=== PATIENT | male | born 1965 | race Caucasian/White ===

== ENCOUNTER → 2016-09-20 13:36 | Outpatient (CLI) | payer BC ==
[2015-12-09 08:11] VITALS: BMI 32.3
[~2016-09-20 13:36] MED LIST: ALTACE10 MG PO; ASPIRIN325 MG PO; CRESTOR20 MG PO; CRESTOR40 MG PO; ISOSORBIDE MONO30 M1 PO; KLONOPIN1 MG PO; PLAVIX75 MG PO; PROTONIX40 MG PO; RANEXA500 MG PO
== END | disposition home or self-care (01) ==
LOC: D.US 13:36
DX: S80.12XA Contusion of left lower leg, initial encounter (principal); R60.0 Localized edema

== ENCOUNTER 2017-02-06 07:46 | Outpatient (CLI) | payer BC ==
[2015-12-09 08:11] VITALS: BMI 32.3
--- NOTE | ~2017-02-06 | HEMODYNAMI ---
PATIENT:EMMANUEL PIZANO MEDICAL RECORD: [id number] : 69 LOCATION:D.CAT ADMISSION DATE: 02/06/17 Generatedon:02/06/201711:37 Patient name: EMMANUEL PIZANO Patient #: [id number] SSN: : 1965 Date of study: 02/06/2017 Page: Of Hemodynamic Procedure Report Patient Data Patient Demographics Procedure consent was obtained First Name: EMMANUEL Gender: Male Last Name: JERICA : 1965 [facility] Initial: DESMOND Age: 51 year(s) Patient #: [id number] Race: Additional ID: [id number] Contact details Address: [address] [place] [address] lane State: [place] City: [place] Zip code: [address] Past Medical History History of disease Date Diagnosis Comments CAD Allergies: No known allergies Admission Admission Data Admission Date: 02/06/2017 Admission Time: 7:46 Admit Source: Other Height (in.): 69.69 BSA: 2.17 (m2) Height (cm.): 177 BMI: 31.85 (kg/m2) Weight (lbs.): 220 Weight (kg.): 99.79 Procedure Procedure Types Cath Procedure Diagnostic Procedure [facility] w/Coronaries PCI Procedure Coronary Stent Initial Miscellaneous Procedures Moderate Sedation up to 15 minutes Procedure Description Procedure Date Procedure Date: 02/06/2017 Procedure Start Time: 11:20 Procedure End Time: 11:35 Procedure Staff Name Function Will Bates MD Performing Physician Shannon Felix RT Scrub Samuel Hayes RN Nurse Gretchen Terrell RT Monitor Procedure Data Cath Procedure Fluoroscopy Diagnostic fluoroscopy Total fluoroscopy Time: 5 time: 5 min min Diagnostic fluoroscopy Total fluoroscopy dose: 838 dose: 838 mGy mGy Contrast Material Contrast Material Type Amount (ml) Isovue 300 95 Entry Location Entry Primary Successful Side Size Upsize Upsize Entry Closure Succes sful Closure Location (Fr) 1 (Fr) 2 (Fr) Remarks Device Remarks Femoral Right 5 Fr 6 Fr artery Short Estimated blood loss: 10 ml Diagnostic catheters Device Type Used For End Catheter Placement Cordis 5Fr Pigtail Procedure Catheter (MP) Cordis 5Fr JL 4.0 Procedure Catheter (MP) Cordis 5Fr 3DRC Catheter Procedure (MP) Procedure Complications No complications Procedure Medications Medication Administration Route Dosage Oxygen NC 2 l/min Heparin Flush Bag added to field 2 bags (1000units/500ml NS) 0.9% NaCl I.V. 100 ml/hr Fentanyl I.V. 50 mcg Versed I.V. 1 mg Fentanyl I.V. 50 mcg Versed I.V. 1 mg Heparin Bolus I.V. 4000 units Fentanyl I.V. 50 mcg Fentanyl I.V. 50 mcg Hemodynamics Rest BSA: 2.17 (m2) O2 Consumption: Estimated: 254.38 (ml/min) O2 Consumption indexed : Estimated:117.23 (ml/min/m) Heart Rate: 63 (bpm) Snapshots Pre Cath Intra NCS Post Cath Vital Signs Time Heart Resp SPO2 etCO2 NIBP (mmHg) Rhythm Pain Status Sedation Rate (ipm) (%) (mmHg) Level (bpm) 11:15:17 60 17 97 0 129/77(99) NSR 4 (11) , 10(A) Distressing 11:19:29 63 17 94 0 123/76(93) NSR 4 (11) , 10(A) Distressing 11:23:41 67 16 93 0 132/82(107) NSR 0 (11) , No 9(A) pain 11:27:57 73 18 96 0 137/79(108) NSR 0 (11) , No 9(A) pain 11:32:11 76 20 95 0 139/85(112) NSR 0 (11) , No 9(A) pain 11:34:53 79 18 95 0 128/91(121) NSR 0 (11) , No 9(A) pain Medications Time Medication Route Dose Verified Delivered Reason Notes Effectiveness by by 11:18:43 Oxygen NC 2 Will Baker Per physician l/min Jana Hayes RN 11:19:05 Heparin Flush added 2 Will Baker used for Bag to bags Jana Hayes pearl diver (1000units/500ml field NS) 11:19:14 0.9% NaCl I.V. 100 Will Baker Per physician ml/hr Jana Hayes RN 11:20:21 Fentanyl I.V. 50 Will Samuel for sedation mcg Jana Hayes RN 11:20:29 Versed I.V. 1 mg Will Samuel for sedation Jana Hayes RN 11:25:45 Fentanyl I.V. 50 Will Samuel for sedation mcg Jana Hayes RN 11:25:48 Versed I.V. 1 mg Will Baker for sedation Jana Hayes RN 11:26:00 Heparin Bolus I.V. 4000 Will Samuel for units Jana Hayes RN anticoagulation 11:29:02 Fentanyl I.V. 50 Will Raygozay for sedation mcg Jana Hayes RN 11:30:57 Fentanyl I.V. 50 Will Raygozay for sedation mcg Jana Hayes RN Procedure Log Time Note 10:51:15 Shannon Felix RT(R) sent for patient. Start room use. 11:10:21 Time tracking: Regular hours 11:10:25 Plan of Care:Hemodynamics will remain stable., Cardiac rhythm will remain stable., Comfort level will be maintained., Respiratory function will remain adequate., Patient/ family verbilizes understanding of procedure., Procedure tolerated without complication., Recovers from procedure without complications.. 11:10:29 Patient received from ED to CCL 2 Alert and oriented. Tansferred to table in Supine position. 11:10:30 Warm blankets applied, and frederick hugger turned on for patient comfort. 11:10:31 Correct patient and procedure confirmed by team. 11:10:33 Signed procedure consent form obtained from patient. 11:10:34 ECG and BP/O2 sat monitors applied to patient. 11:10:48 Vital chart was started 11:10:50 Baseline sample Acquired. 11:10:55 Rhythm: sinus rhythm 11:10:56 Full Disclosure recording started 11:11:03 H&P Date Dictated: 02/06/2017 Emergent; H&P N/A. 11:11:05 Pre-procedure instructions explained to patient. 11:11:30 Patient NPO since Midnight. 11:11:36 Patient allergic to No known allergies 11:11:40 Is the patient allergic to Iodine/contrast media? No. 11:11:42 Is patient on blood thinner?Yes 11:11:45 ACC The patient was administered the following blood thiners within the last 24 hours: ACCPlavix 11:11:47 Patient diabetic? No. 11:11:51 Snore? Yes 11:11:52 Sleep apnea? No 11:11:59 Dentures? No ? 11:12:03 Patient pain scale 4/10 ?. 11:12:09 IV patent on arrival in left forearm with 0.9% NaCl at [facility]. 11:12:14 Lab results completed and on chart. 11:12:17 Right groin area was prepped with chlora-prep and draped in sterile fashion 11:12:19 Alarms reviewed by R. N. 11:12:19 Sharps counted by scrub and verified by R.N. 11:12:20 Physician paged 11:12:21 Physician arrived 11:12:22 --------ALL STOP TIME OUT------ 11:12:23 Final Timeout: patient, procedure, and site verified with staff and physician. All members of the team are in agreement. 11:12:25 Right groin site verified by team. 11:12:29 Physical assessment completed. ASA score P 2 - A patient with mild systemic disease as per Will Bates MD. 11:12:32 Sedation plan: IV Moderate Sedation Versed, Fentanyl 11:13:13 Use device set Femoral Dx 11:13:14 Acist Syringe opened to sterile field. 11:13:15 Bag Decanter opened to sterile field. 11:13:15 Medline Cath Pack opened to sterile field. 11:13:16 Terumo 5Fr [place] Sheath opened to sterile field. 11:13:16 St Jacob 260cm J .035 wire opened to sterile field. 11:13:17 Acist Hand Control opened to sterile field. 11:13:18 Acist Manifold opened to sterile field. 11:13:18 Diagnostic Infinity 5Fr Multipack catheter opened to sterile field. 11:13:18 Tegaderm 4 x 4 opened to sterile field. 11:14:52 Patient Height : 69.69 inches 11:15:08 Patient Weight : 220 lbs 11:15:26 Admit Source: Other 11:18:43 Oxygen 2 l/min NC was administered by Samuel Hayes RN; Per physician; 11:19:05 Heparin Flush Bag (1000units/500ml NS) 2 bags added to field was administered by Samuel Hayes RN; used for procedure; 11:19:14 0.9% NaCl 100 ml/hr I.V. was administered by Samuel Hayes RN; Per physician; 11:19:51 Procedure started. 11:20:05 Local anesthetic to right femoral artery with Lidocaine 2% by Will Bates MD.INITIAL ACCESS ONLY 11:20:21 Fentanyl 50 mcg I.V. was administered by Samuel Hayes RN; for sedation; 11:20:24 A 5 Fr sheath was inserted into the Right Femoral artery 11:20:29 Versed 1 mg I.V. was administered by Samuel Hayes RN; for sedation; 11:20:39 A Cordis 5Fr Pigtail Catheter (MP) was advanced over the wire and used for Procedure. 11:20:41 Zero performed for pressure channel P1 11:20:48 Zero performed for pressure channel P1 11:21:01 LV angiography performed. 11:21:43 EF : 50 % 11:21:49 Catheter removed. 11:21:56 A Cordis 5Fr JL 4.0 Catheter (MP) was advanced over the wire and used for Procedure. 11:22:45 LCA angiography performed. 11:23:11 Catheter removed. 11:23:19 A Cordis 5Fr 3DRC Catheter (MP) was advanced over the wire and used for Procedure. 11:24:04 Terumo 6Fr [place] Sheath opened to sterile field. 11:24:05 Merit BasixCompak Inflation Kit opened to sterile field. 11:24:15 Medtronic Launcher 6Fr AR 2.0 guide catheter opened to sterile field. 11:24:23 RCA angiography performed. 11:24:26 Catheter removed. 11:24:45 Sheath upsized to a 6 Fr Short. 11:25:02 6 Fr AR 2 guide catheter was inserted over the wire 11:25:09 Whisper wire advanced. 11:25:44 Bentley Whisper J 300cm 0.014 guide wire opened to sterile field. 11:25:45 Fentanyl 50 mcg I.V. was administered by Samuel Hayes RN; for sedation; 11:25:48 Versed 1 mg I.V. was administered by Samuel Hayes RN; for sedation; 11::49 Wire advanced across lesion. 11:26:00 Heparin Bolus 4000 units I.V. was administered by Samuel Hayes RN; for anticoagulation; 11::46 Inflation Number: 1 A Cj OTW 3.5 x 15 stent was prepped and advanced across the Mid RCA. The stent was deployed at 23 AKOSUA for 0:16 (min:sec). 11:28:15 Stent catheter was removed intact over wire. 11:29:02 Fentanyl 50 mcg I.V. was administered by Samuel Hayes RN; for sedation; 11:29:20 Inflation number: 2 A NC Euphora 4.0 x 12 balloon was prepped and advanced across the Mid RCA, then inflated to 21 AKOSUA for 0:21 (min:sec). 11:29:31 Balloon removed over the wire. 11::46 Inflation number: 3 The NC Euphora 4.0 x 12 balloon was reinflated across the Mid RCA, to 17 AKOSUA for 0:07 (min:sec). 11:30:45 several inflations 11:30:57 Fentanyl 50 mcg I.V. was administered by Samuel Hayes RN; for sedation; 11::46 Wire removed. 11:31:47 Guide catheter removed. 11:32:04 Cordis 6Fr Exoseal opened to sterile field. 11:34:05 Procedure ended.(Physican Out) 11:34:10 Fluoroscopy time 05.00 minutes. 11:34:14 Fluoroscopy dose: 838 mGy 11:34:14 Flurop Dose total: 838 11:34:19 Contrast amount:Isovue 300 95ml. 11:34:29 Sharps counted by scrub and verified by R.N. 11:34:31 Insertion/operative site no bleeding no hematoma. 11:34:36 Post Procedure Pulses reassessed and unchanged 11:34:40 Estimated blood loss: 10 ml 11:34:41 Post procedure instruction explained to patient.Patient verbalizes understanding. 11:34:54 Procedure type changed to Cath procedure, Diagnostic procedure, LHC, LHC w/Coronaries, PCI procedure, Coronary Stent Initial, Miscellaneous Procedures, Moderate Sedation up to 15 minutes 11:34:56 Procedure and supply charges have been captured, reviewed, submitted and are correct. 11:35:21 Procedure Complication : No complications 11:35:24 Vital chart was stopped 11:35:25 See physician's report for complete and final results. 11:35:51 Report given to Pre/Post Procedure Room. 11:35:56 Patient transfered to Pre/Post Procedure Room with Stretcher. 11:35:59 Procedure ended. 11:35:59 Full Disclosure recording stopped 11:36:02 End room use (Document Last) Intervention Summary Intervention Notes Time ActionType Lesion and Equipment Action# Pressure Duration Attributes Used 11:26:46 Place stent Mid RCA Cj OTW 1 23 00:16 3.5 x 15 stent 11:29:20 Inflate Mid RCA NC 2 21 00:21 balloon Euphora 4.0 x 12 balloon 11:29:46 Reinflate Mid RCA NC 3 17 00:07 balloon Euphora 4.0 x 12 balloon Device Usage Item Name Manufacture Quantity Catalog Hospital Part Current Minima l Lot# / Number Charge Number Stock Stock Serial# Code Acist Acist 1 50396 129650 486789 841480 20 Syringe Medical Systems Inc Bag Microtek 1 2002S 947940 60457 426127 5 BioCurity Inc. Medline Cardinal 1 [id number] 390675 37896 737310 5 Cath Pack Health Terumo 5Fr Terumo 1 [id number] 513784 554619 850547 [address] Jacob 1 060312 910351 310497 424388 30 260cm J .035 wire Acist Hand Acist 1 55982 543038 110591 807221 5 Control Medical Systems Inc Acist Acist 1 08071 496108 468464 073974 5 Helpmycash Medical [employer] Inc Diagnostic Cardinal 1 WD0520 294914 13833 103140 30 Infinity Health 5Fr Multipack catheter Tegaderm 4 3M 1 1626W 416955 279092 104634 5 x 4 Cordis 5Fr Cardinal 1 659811 5 Pigtail Health Catheter (MP) Cordis 5Fr Cardinal 1 524789 5 JL 4.0 Health Catheter (MP) Cordis 5Fr Cardinal 1 243151 5 3DRC Health Catheter (MP) Terumo 6Fr Terumo 1 KRK861 910614 815001 643850 40 [place] Sheath Merit Merit 1 RF7768 169451 869532 146016 15 Ubicom Medical Inflation Kit Medtronic Medtronic 1 [id number] 642255 31453 326201 1 Launcher 6Fr AR 2.0 guide catheter Bentley Bentley 1 [id number] 095561 151933 144355 5 [facility] J Vascular 300cm 0.014 guide wire Dewitt OTW Medtronic 1 [id number] 236529 5914661 210166 5 [id number] 3.5 x 15 stent NC Euphora Medtronic 1 [id number] 949950 817619 321520 1 [id number] 4.0 x 12 balloon Cordis 6Fr Cardinal 1 EX600 744925 997485 802788 10 [facility] MobiWork Signature Audit [place] Stage Time Signature Unsigned Intra-Procedure 02/06/2017 Gretchen Terrell 11:37:42 AM RT(R) Signatures Monitor : Gretchen Terrell Signature : RT Date : Time : [id number] [place] [address]
[2017-02-06 08:03] LABS: BASOPHILS 0.5 % (0-2); EOSINOPHILS 2.3 % (0-7); HEMATOCRIT 43.2 % (42.0-54.0); HEMOGLOBIN 15.1 g/dL (13.5-17.5); IMMATURE GRANULOCYTES 1.6 % (0-5); LYMPHOCYTES 30.6 % (15-50); MCH 31.8 pg (26.0-34.0); MCV 90.9 fL (80.0-100.0); MEAN PLATELET VOLUME 9.4 fL (7.4-10.4); MONOCYTES 7.4 % (2-11); NEUTROPHILS 57.6 % (40-80); PLATELET COUNT 208 10x3/uL (130-400); RBC 4.75 10x6/uL (4.20-6.10); RDW 12.3 % (11.5-14.5); WBC 5.7 10x3/uL (4.8-10.8)
[2017-02-06 08:19] LABS: ALBUMIN 3.9 g/dL (3.4-5.0); ALKALINE PHOSPHATASE 60 U/L (46-116); ALT (SGPT) 61 U/L (10-68); CALC OSMOLALITY 279 mosm/kg (275-300); CALCIUM 8.8 mg/dL (8.5-10.1); CARBON DIOXIDE 24.3 mmol/L (21.0-32.0); CHLORIDE - SERUM 101 mmol/L (98-107); CREATININE - SERUM 1.4 mg/dL (0.6-1.3); GLUCOSE 114 mg/dL (74-106); POTASSIUM - SERUM 4.1 mmol/L (3.5-5.1); PROTEIN - SERUM 7.6 g/dL (6.4-8.2); SODIUM 138 mmol/L (136-145); UREA NITROGEN 21 mg/dL (7-18); eGFR NON AFRICAN AMERICAN 57 mL/min (90-120)
[2017-02-06 08:28] LABS: CHOL - HDL RATIO 3.6 ratio (2.3-4.9); CHOLESTEROL, TOTAL 258 mg/dL (0-200); CKMB 1.4 U/L (0.0-3.6); CREATINE KINASE 231 UL (21-232); HDL CHOLESTEROL 71 mg/dL (32-96); LDL CHOLESTEROL 159 mg/dL (0-100); LDL-HDL RATIO 2.2 ratio (1.5-3.5); TRIGLYCERIDE 143 mg/dL (30-200); TROPONIN-I < 0.017 ng/mL (0.000-0.060)
--- NOTE | 2017-02-06 11:45 | NUR ---
1145 RECEIVED PT FROM ADMISSIONS OFFICER. PT IS DROWSY. DENIES ANY C/O CHEST PAIN OR NAUSEA. PACED RHYTHM, RATE 61. RIGHT GROIN DRESSING IS CDI, AREA IS SOFT AND NONTENDER. PEDAL PULSES PALPABLE. IV PATENT AND INFUSING PER ORDERS, APPROX 800 CC LTC. CALL LIGHT IN REACH, INSTRUCTED PT TO CALL FOR NEEDS.
--- NOTE | 2017-02-06 12:00 | NUR ---
RIGHT GROIN DRESSING CDI,. AREA SOFT AND NONTENDER. PEDAL PULSES PALPABLE, PT DENIES ANY C/O. CALL LIGHT IN REACH. MOTHER AT BEDSIDE.
--- NOTE | 2017-02-06 12:15 | NUR ---
1215 AT BEDSIDE, PT DENIES ANY C/O. PACED RHYTHM, RR EVEN AND UNLABORED. CALL LIGHT IN REACH. DRESSING CDI, AREA SOFT AND NONTENDER.
--- NOTE | 2017-02-06 12:33 | NUR ---
1230 DRESSING TO RIGHT GROINIS CDI, AREA IS SOFT AND NONTENDER. PEDAL PULSES PALPABLE, FOOT WARM WITH BRISK CAP REFILL. DENIES ANY C/O. AT BEDSIDE.
--- NOTE | 2017-02-06 13:00 | NUR ---
1300 PT DENIES ANY C/O. DRESSING TO RIGHT GROIN IS CDI, AREA IS SOFT AND NONTENDER. PEDAL PULSES PALPABLE. FAMILY AT BEDSIDE, CALL LIGHT IN REACH. VSS. WILL CONTINUE TO MONITOR.
--- NOTE | 2017-02-06 14:07 | NUR ---
1345 DRESSING TO RIGHT GROIN IS CDI, AREA SOFT AND NONTENDER. PEDAL PULSES PALPABLE. VSS. RR EVEN AND UNLABORED. PT DENIES NEEDS AT THIS TIME. AT BEDSIDE, CALL LIGHT IN REACH.
--- NOTE | 2017-02-06 14:44 | NUR ---
PT HAS DIONICIO SANDWICH WITH NO C/O NAUSEA. HAS VOIDED 400 CC CLEAR YELLOW URINE USING URINAL. DENIES ANY C/O AT THIS TIME. PEDAL PULSES PALPABLE, DRESSING IS CDI. AT BEDSIDE AND CALL LIGHT IN REACH. WILL CONTINUE TO MONITOR.
--- NOTE | 2017-02-06 15:30 | NUR ---
1530 PIV HAS BEEN DC'D WT CATH INTACT. DC INSTRUCTIONS HAVE BEEN REVIEWED AND PT VERBALIZES UNDERSTADNING. PT DRESSING FOR DC TO HOME.
--- NOTE | 2017-02-06 15:49 | NUR ---
1545 PT HAS AMBULATED TO THE BATHROOM AND VOIDED QS. DENIES ANY C/O. PT ESCORTED TO PRIVATE AUTO VIA WC BY NURSE WITH FRIEND DRIVING HIM HOME. PT DC TO HOME WITH ALL BELONGINGS AND DC INSTRUCTIONS IN HAND.
--- NOTE | 2017-02-08 09:04 | CN ---
PATIENT NAME:EMMANUEL PIZANO MEDICAL RECORD: [id number] : 69 LOCATION:D.CAT ADMIT DATE: ACCOUNT: [id number] CONSULTING PHYSICIAN: MATILDA GASCA MD REFERRING PHYSICIAN: SUSAN ARELLANO MD DATE OF CONSULTATION: 02/06/2017 DIAGNOSES: 1. Unstable angina. 2. Coronary artery disease. 3. Previous percutaneous transluminal coronary angioplasty with stent. 4. Sick sinus syndrome. 5. Status post pacemaker. 6. Hypertension. 7. Hyperlipidemia. HISTORY OF PRESENT ILLNESS: This is a gentleman with a past history of coronary artery disease, previous multivessel PTCA with stent, who presents with a severe episode of chest discomfort this morning. He has been having increasing episodes of chest pain, chest discomfort. Today, he had a severe episode with diaphoresis, nausea, and vomiting. He is pain free now. His EKG is with no acute changes. PHYSICAL EXAMINATION: GENERAL APPEARANCE: Well-nourished, well-developed, appears stated age. Level of distress, comfortable. PSYCHIATRIC: Mental status, alert, normal affect. Orientation, oriented to time, place and person. EYES: Lids and conjunctiva, noninjected. No discharge, no pallor. ENT: Lips, teeth, gums, normal dentition. Oropharynx, no cyanosis, no pallor. NECK: Carotid arteries, bilateral normal upstroke, no bruits, no thrills. JUGULAR VEINS: No jugular venous pressure or distention. CERVICAL LYMPH NODES: Nontender, nonenlarged. THYROID: Not enlarged. Nontender. No nodules. LUNGS: Respiratory effort, unlabored. CHEST: Normal curvature. No thoracic deformity. No chest wall tenderness. Percussion, resonant. Auscultation, clear. No wheezes, no rales, no rhonchi. CARDIOVASCULAR: Precordial exam, nondisplaced. No heaves or pericardial thrills. Rate and rhythm, regular. Heart sounds, normal S1, normal S2. No S3, no gallop, no rub. Systolic murmur, not heard. Diastolic murmur, not heard. EXTREMITIES: No cyanosis, no edema. Peripheral pulses, full and equal in all extremities, except as noted. No bruits appreciated. ABDOMEN: Soft, nondistended. Normal aorta. No bruit. Nontender. No masses. Liver, nontender, no hepatomegaly. Spleen, nontender, no splenomegaly. MUSCULOSKELETAL: No joint tenderness. No joint swelling. No erythema. NEUROLOGICAL: Normal gait, normal strength, normal tone. SKIN: Warm and dry. REVIEW OF SYSTEMS: The patient reports easy bruising, but reports no swollen glands. The patient reports no fever, no night sweats, no significant weight gain, no significant weight loss. No significant exercise tolerance. The patient reports no dry eyes, no irritation, no vision change. Patient reports no difficulty hearing and no ear pain. Patient reports no frequent nose bleeds or nose and sinus problems. Patient reports no arm pain on exertion. No shortness of breath while lying down. No history of heart murmur. Patient CONSULT REPORT [id number] EMMANUEL PIZANO reports no cough, no wheezing or coughing up blood. Patient reports no abdominal pain, no vomiting. Normal appetite. No diarrhea and not vomiting blood. No nausea and no constipation. Patient reports no incontinence. No difficulty urinating. No hematuria. No increased frequency. Patient reports no muscle aches. No weakness, no arthralgias, no back pain. No swelling of the extremities. Patient reports no abnormal mole, no jaundice, no rashes. Reports no loss of consciousness. No weakness and no numbness. No seizures, dizziness, or headaches. The patient reports no depression, no sleep disturbance, feeling safe in a relationship and no alcohol abuse. Patient reports on fatigue. Reports no runny nose or sinus pressure. No itching, no hives, and no frequent sneezing. IMPRESSION: Unstable angina. We will proceed with coronary angiography. Further care depends upon findings of the angiography. TRANSINT:[id number] Voice Confirmation ID: [id number] DOCUMENT ID: [id number] MATILDA GASCA MD at 0904 CC: [id number] DICTATION DATE: 02/06/17 1002 PANEL WIRER: 02/06/17 1131 DEP CLI 02/06/17 [id number] [place] [address]
--- NOTE | 2017-02-09 12:34 | OP ---
PATIENT NAME: EMMANUEL PIZANO MEDICAL RECORD: [id number] :69 LOCATION:D.CAT ADMISSION DATE: SURGEON: MATILDA GASCA MD DATE OF OPERATION: 02/06/2017 PROCEDURES: 1. PTCA stent to RCA. 2. Left heart catheterization. 3. Selective coronary angiography. 4. Left ventriculogram. INDICATION: Angina and coronary artery disease. PROCEDURE IN DETAIL: After informed consent was obtained and after a detailed explanation of risks, benefits as well as alternative therapies, the patient elected to proceed with angiogram and angioplasty. The right femoral area was prepped and draped in normal sterile fashion. The right femoral artery was cannulated via modified Seldinger technique with placement of 6-[place] Islander sheath. All catheters exchanged through this sheath. FINDINGS: Left ventriculogram was performed in the standard 30-degree PRINGLE view reveals preserved cardiac wall motion, ejection fraction is 60%. SELECTIVE CORONARY ANGIOGRAPHY: 1. Left main showed no significant angiographic disease. 2. Left anterior descending has previously placed stents, these are widely patent with no significant restenosis. No disease elsewise. 3. Left circumflex has previously placed stents. These are widely patent with no significant restenosis. No disease elsewise. 4. The right coronary has previously placed stents. There is a 90% in-stent restenosis in the mid vessel. PTCA STENT OF THE RIGHT CORONARY ARTERY: The stent used was 3.5 x 18 mm Cj taken to 23 atmospheres. Post-stent dilatation made with a 4.0 high pressure balloon to 23 atmospheres. Result was 0% residual stenosis. OVERALL IMPRESSION: Successful percutaneous transluminal coronary angioplasty stent of the right coronary artery going from 80% to 90% initial stenosis to 0% residual stenosis. TRANSINT:[id number] Voice Confirmation ID: [id number] DOCUMENT ID: [id number] MATILDA GASCA MD at 1234 CC: [id number] DICTATION DATE: 02/06/17 1138 SHOE TRIMMER: 02/06/17 1159 DEP CLI 02/06/[address] [address]
== END 2017-02-06 15:45 | disposition home or self-care (01) ==
LOC: D.CATH 07:46 → D.ER 07:46 → EDSTATUS 10:30 → D.CATH 15:45
PROVIDERS: Family Medicine
DX: I25.119 Atherosclerotic heart disease of native coronary artery with unspecified angina pectoris (principal); R07.9 Chest pain, unspecified; Z01.812 Encounter for preprocedural laboratory examination

== ENCOUNTER 2017-11-27 18:49 | Observation (INO) | payer BC ==
[~2017-11-27] VITALS: Ht 177.8 cm; Wt 100.7 kg
--- NOTE | ~2017-11-27 | OP ---
PATIENT NAME: EMMANUEL PIZANO MEDICAL RECORD: [id number] :69 LOCATION:[facility] ADMISSION DATE:11/27/17 SURGEON: MATILDA GASCA MD DATE OF OPERATION: 11/28/2017 DISCHARGE DIAGNOSES: 1. PTCA stent left circumflex and laser atherectomy, PTCA RCA this admission. 2. Unstable angina. 3. Coronary artery disease. PROCEDURE IN DETAIL: After informed consent was obtained and after a detailed description of risks, benefits as well as alternative therapies, the patient elected to proceed with angiogram and angioplasty. The right femoral area was prepped and draped in normal sterile fashion. Right femoral artery was cannulated via modified Seldinger technique with placement of 6-Chinese sheath. All catheters exchanged through this sheath. FINDINGS: The left ventriculogram was performed in standard 30-degree PRINGLE view, reveals good cardiac wall motion throughout all segments. Overall ejection fraction estimated at 65%. SELECTIVE CORONARY ANGIOGRAPHY: 1. Left main is with no significant angiographic disease. 2. Left anterior descending has moderate irregularities, but no flow-limiting stenosis. 3. The left circumflex has 80% stenosis in the mid vessel. 4. The right coronary artery has multiple previously placed stents with greater than 80% in-stent restenosis times 2. PTCA STENT OF THE LEFT CIRCUMFLEX: The stent used was a 3.0 x 9 mm Cj. Result was 0% residual stenosis. LASER ATHERECTOMY PTCA FOR IN-STENT RESTENOSIS OF THE RCA: Laser atherectomy was made. Multiple passes were made at 0.9 catheter with 80/40. We then turned our attention to this vessel with a 3.5 balloon. Multiple inflations were made up to 19 atmospheres. Result was 0% residual stenosis. OVERALL IMPRESSION: Successful percutaneous transluminal angioplasty stent of the left circumflex and successful laser atherectomy, percutaneous transluminal angioplasty stent of the right coronary artery, both going from 80% initial stenosis to 0% residual. TRANSINT:[id number] Voice Confirmation ID: [id number] DOCUMENT ID: [id number] MATILDA GASCA MD at 0934 CC: [id number] DICTATION DATE: 11/28/17 1156 SYSTEM ENGINEER: 11/28/17 1205 DIS IN 11/28/17 [place] [id number]
--- NOTE | ~2017-11-27 | HEMODYNAMI ---
PATIENT:EMMANUEL PIZANO MEDICAL RECORD: [id number] : [birth year] LOC[address] [id number] ADMISSION DATE: 11/27/17 Generatedon:11/28/201712:13 Patient name: EMMANUEL PIZANO Patient #: [id number] SSN: : 1965 Date of study: 11/28/2017 Page: Of Hemodynamic Procedure Report Patient Data Patient Demographics Procedure consent was obtained First Name: EMMANUEL Gender: Male Last Name: JERICA : 1965 [facility] Initial: DESMOND Age: 52 year(s) Patient #: [id number] Race: Additional ID: [id number] Contact details Address: [address] [place] [address] lane State: [place] City: [place] Zip code: [address] Past Medical History History of disease Date Diagnosis Comments CAD Allergies: No known allergies Admission Admission Data Admission Date: 11/27/2017 Admission Time: 21:51 [facility] Lab Results Lab Result Date: 11/28/2017 Lab Result Time: 0:00 Biochemistry Name Units Result Min Max BUN mg/dl 10 --(-*--)-- 7 18 Creatinine mg/dl 1 --(--*-)-- 0.6 1.3 CBC Name Units Result Min Max Hemoglobin g/dl 15.4 --(-*--)-- 13.5 17.5 Procedure Procedure Types Cath Procedure Diagnostic Procedure C [facility] w/Coronaries Sedation Charges Moderate Sedation up to 30 minutes PCI Procedure Coronary Stent Coronary Stent Initial Coronary Atherectomy Atherectomy w/PTCA Coronary Initial Procedure Description Procedure Date Procedure Date: 11/28/2017 Procedure Start Time: 11:10 Procedure End Time: 11:54 Procedure Staff Name Function Will Bates MD Performing Physician Madeline Flores RT Monitor Kirit Galindo RT Scrub Peter Salcedo RN Nurse Procedure Data Cath Procedure Fluoroscopy Diagnostic fluoroscopy Total fluoroscopy Time: 0 time: 0 min min Diagnostic fluoroscopy Total fluoroscopy dose: dose: 1332 mGy 1332 mGy Contrast Material Contrast Material Type Amount (ml) Isovue 300 185 Entry Location Entry Primary Successful Side Size Upsize Upsize Entry Closure Succes sful Closure Location (Fr) 1 (Fr) 2 (Fr) Remarks Device Remarks Femoral Right 6 Fr Exoseal artery Short Estimated blood loss: 10 ml Diagnostic catheters Device Type Used For End Catheter Placement MULTIPACK Pigtail 5 Fr Procedure catheter MULTIPACK JL 4.0 5Fr Procedure catheter MULTIPACK 3DRC 5Fr Procedure catheter Procedure Complications No complications Procedure Medications Medication Administration Route Dosage Oxygen etCO2 Nasal cannula 2 l/min Lidocaine 2% added to field 20 Heparin Flush Bag added to field 2 bags (1000units/500ml NS) 0.9% NaCl I.V. 100 ml/hr Versed I.V. 2 mg Fentanyl I.V. 100 mcg Heparin Bolus I.V. 5000 units Versed I.V. 2 mg Fentanyl I.V. 100 mcg Versed I.V. 2 mg Fentanyl I.V. 100 mcg Versed I.V. 1 mg Fentanyl I.V. 100 mcg Heparin Bolus I.V. 3000 units Versed I.V. 1 mg Fentanyl I.V. 100 mcg Plavix P.O. 75 mg Morphine I.V. 4 mg Nitro Davenport S.L. 400 mcg Hemodynamics Rest HGB: 15.4 (g/dl) Heart Rate: 64 (bpm) Snapshots Pre Cath Intra NCS Post Cath Vital Signs Time Heart Resp SPO2 etCO2 NIBP (mmHg) Rhythm Pain Sedation Rate (ipm) (%) (mmHg) Status Level (bpm) 11:01:40 62 17 96 0 139/90(105) NSR 0 (11) 10(A) , No pain 11:06:27 62 12 94 36.2 122/78(93) NSR 0 (11) 10(A) , No pain 11:11:10 60 19 97 31.6 130/82(99) NSR 0 (11) 10(A) , No pain 11:15:53 66 16 92 30.1 142/96(120) NSR 0 (11) 9(A) , No pain 11:20:41 73 19 97 36.9 128/83(106) NSR 0 (11) 9(A) , No pain 11:25:28 60 17 96 34.6 129/73(106) NSR 0 (11) 9(A) , No pain 11:30:13 67 18 95 36.1 136/80(102) NSR 0 (11) 9(A) , No pain 11:34:55 69 15 94 31.6 140/87(122) NSR 0 (11) 9(A) , No pain 11:39:40 75 16 94 38.4 153/105(141) NSR 0 (11) 10(A) , No pain 11:44:31 88 19 96 39.1 152/107(132) NSR 0 (11) 9(A) , No pain 11:49:20 81 17 96 36.9 169/122(140) NSR 0 (11) 9(A) , No pain 11:54:15 84 19 96 44.4 159/114(139) NSR 0 (11) 10(A) , No pain Medications Time Medication Route Dose Verified Delivered Reason N otes Effectiveness by by 11:04:06 Oxygen etCO2 2 l/min Will Green used for Nasal Jana Salcedo RN procedure cannula 11:04:13 Lidocaine 2% added 20ml vial Will Solis for local to Jana Bates MD anesthetic field 11:04:19 Heparin Flush added 2 bags Will Solis used for Bag to Jana Bates MD procedure (1000units/500ml field NS) 11:04:28 0.9% NaCl I.V. 100 ml/hr Will Grene Per physician Jana Salcedo RN 11:08:32 Versed I.V. 2 mg Will Green for sedation Jana Salcedo RN 11:08:39 Fentanyl I.V. 100 mcg Will Davilaie for sedation Jana Salcedo RN 11:14:19 Versed I.V. 2 mg Will Buffie for sedation Jana Salcedo RN 11:14:22 Fentanyl I.V. 100 mcg Will Davilaie for sedation Jana Salcedo RN 11:17:41 Heparin Bolus I.V. 5000 Will Green for v erified units Jana Salcedo RN anticoagulation with dr bates 11:25:47 Versed I.V. 2 mg Will Davilaie for sedation Jana Salcedo RN 11:25:51 Fentanyl I.V. 100 mcg Will Davilaie for sedation Jana Salcedo RN 11:31:11 Versed I.V. 1 mg Will Green for sedation Jana Salcedo RN 11:31:14 Fentanyl I.V. 100 mcg Will Green for sedation Jana Salcedo RN 11:41:37 Heparin Bolus I.V. 3000units Will Green for v erified Jana Salcedo RN anticoagulation with dr bates 11:41:56 Versed I.V. 1 mg Will Green for sedation Jana Salcedo RN 11:45:56 Fentanyl I.V. 100 mcg Will Green for sedation Jana Salcedo RN 11:56:32 Plavix P.O. 75 mg Will Green for Jana Salcedo RN antiplatelet therapy 12:00:59 Morphine I.V. 4 mg Will Green for chest pain Jana Salcedo RN 12:10:04 Nitro Davenport S.L. 400 mcg Will Green for chest pain Jana Salcedo RN Procedure Log Time Note 10:10:54 Signed procedure consent form obtained from patient. 10:10:55 Time tracking: Regular hours (M-F 7:00 - 5:00) 10:10:59 Plan of Care:Hemodynamics will remain stable., Cardiac rhythm will remain stable., Comfort level will be maintained., Respiratory function will remain adequate., Patient/ family verbilizes understanding of procedure., Procedure tolerated without complication., Recovers from procedure without complications.. 10:11:34 Lab Result : BUN 10 mg/dl 10:11:34 Lab Result : Creatinine 1 mg/dl 10:11:34 Lab Result : Hemoglobin 15.4 g/dl 10:44:58 Madeline Flores RT(R) sent for patient. Start room use. 10:55:19 Patient received from Med II to CCL 1 Alert and oriented. Tansferred to table in Supine position. 10:55:20 Warm blankets applied, and frederick hugger turned on for patient comfort. 10:55:20 Correct patient and procedure confirmed by team. 10:55:21 ECG and BP/O2 sat monitors applied to patient. 11:00:41 Vital chart was started 11:00:43 Baseline sample Acquired. 11:00:53 Rhythm: sinus rhythm , paced 11:00:59 Full Disclosure recording started 11:01:00 Pre-procedure instructions explained to patient. 11:01:01 Pre-op teaching completed and patient verbalized understanding. 11:02:35 H&P Date Dictated: 11/28/2017 Within 30 days and on chart.. 11:02:40 Family in patients room. 11:02:42 Patient NPO since Midnight. 11:02:48 Patient allergic to No known allergies 11:02:52 Is patient on blood thinner?Yes 11:02:55 ACC The patient was administered the following blood thiners within the last 24 hours: ACCPlavix 11:02:57 Patient diabetic? No. 11:03:00 Previous problem with sedation/anesthesia? No ? 11:03:01 Snore? Yes 11:03:02 Sleep apnea? No 11:03:03 Deviated septum? No 11:03:03 Opens mouth fully? Yes 11:03:04 Sticks out tongue? Yes 11:03:06 Airway obstruction? No ? 11:03:08 Dentures? No ? 11:03:10 Pre procedure: right dorsailis pedis pulse 2+ Normal; easily identifiable; not easily obliterated 11:03:13 Patient pain scale 0/10 ?. 11:03:20 IV patent on arrival in left forearm with 0.9% NaCl at [facility]. 11:03:23 Lab results completed and on chart. 11:03:25 Right groin area was prepped with chlora-prep and draped in sterile fashion 11:03:26 Alarms reviewed by R. N. 11:03:26 Sharps counted by scrub and verified by R.N. 11:03:29 Use device set Femoral Dx 11:03:30 ACIST Syringe (39468) opened to sterile field. 11:03:30 Bag Decanter (2002) opened to sterile field. 11:03:31 Medline Cath Pack ([id number]) opened to sterile field. 11:03:31 DIAGNOSTIC WIRE .035 260cm J wire (341239) opened to sterile field. 11:03:34 ACIST Hand Control (81851) opened to sterile field. 11:03:34 ACIST Manifold (71942) opened to sterile field. 11:03:36 DIAGNOSTIC Multipack 5Fr catheter set ([id number]) opened to sterile field. 11:03:38 Tegaderm 4 x 4 (1626W) opened to sterile field. 11:04:06 Oxygen 2 l/min etCO2 Nasal cannula was administered by Peter Salcedo RN; used for procedure; 11:04:13 Lidocaine 2% 20ml vial added to field was administered by Will Bates MD; for local anesthetic; 11:04:19 Heparin Flush Bag (1000units/500ml NS) 2 bags added to field was administered by Will Bates MD; used for procedure; 11:04:28 0.9% NaCl 100 ml/hr I.V. was administered by Peter Salcedo RN; Per physician; 11:07:18 Zero performed for pressure channel P1 11::44 --------ALL STOP TIME OUT------ 11:07:45 Final Timeout: patient, procedure, and site verified with staff and physician. All members of the team are in agreement. 11:07:47 Right groin site verified by team. 11:07:50 Physical assessment completed. ASA score P 2 - A patient with mild systemic disease as per Will Bates MD. 11:07:53 Sedation plan: IV Moderate Sedation Medication:Versed, Fentanyl 11:08:32 Versed 2 mg I.V. was administered by Peter Salcedo RN; for sedation; 11:08:39 Fentanyl 100 mcg I.V. was administered by Peter Salcedo RN; for sedation; 11:09:54 Procedure started. 11:10:05 Zero performed for pressure channel P1 11:10:55 Local anesthetic to right femoral artery with Lidocaine 2% by Will Bates MD.INITIAL ACCESS ONLY 11:11:07 SHEATH 6FR Buxton (FUK052) opened to sterile field. 11:11:26 A 6 Fr Short sheath was inserted into the Right Femoral artery 11:11:38 A MULTIPACK Pigtail 5 Fr catheter was advanced over the wire and used for Procedure. 11:11:57 LV gram done using PRINGLE 11:11:59 Injector settings: Ml/sec: 10, Volume: 20, 11:12:28 EF : 60 % 11:12:29 Catheter removed. 11:12:36 A MULTIPACK JL 4.0 5Fr catheter was advanced over the wire and used for Procedure. 11:14:02 LCA angiography performed. 11:14:03 Catheter removed. 11:14:11 A MULTIPACK 3DRC 5Fr catheter was advanced over the wire and used for Procedure. 11:14:19 Versed 2 mg I.V. was administered by Peter Salcedo RN; for sedation; 11:14:22 Fentanyl 100 mcg I.V. was administered by Peter Salcedo RN; for sedation; 11:14:57 INFLATOR Merit Huber (MY8663) opened to sterile field. 11:14:58 CHOICE PT Extra Support 182cm wire ([id number]) opened to sterile field. 11:17:41 Heparin Bolus 5000 units I.V. was administered by Peter Salcedo RN; for anticoagulation; verified with dr bates 11:17:41 GUIDE 6FR XBLAD 3.5 catheter ([id number]) opened to sterile field. 11:17:52 6 Fr XBLAD 3.5 guide catheter was inserted over the wire 11:18:28 CHOICE ES 182 wire advanced. 11:20:32 WIRE REMOVED 11:20:58 CHOICE Floppy Straight 300cm guide wire ([id number]) opened to sterile field. 11:21:00 SuperCross Microcatheter 120 Angle (5306) opened to sterile field. 11:23:42 CHOICE Floppy Straight 300cm guide wire ([id number]) opened to sterile field. 11:24:22 NEW CHOICE 300 ADVANCED 11:24:46 SUPERCROSS ADVANCED 11:25:47 Versed 2 mg I.V. was administered by Peter Salcedo RN; for sedation; 11:25:51 Fentanyl 100 mcg I.V. was administered by Peter Salcedo RN; for sedation; 11:26:34 CHOICE 300 REMOVED 11:26:38 CHOICE Floppy Straight 300cm guide wire ([id number]) opened to sterile field. 11:26:45 NEW CHOICE 300 ADVANCED 11:29:19 SUPERCROSS REMOVED 11:30:09 SuperCross Microcatheter 120 Angle (5306) opened to sterile field. 11:30:33 NEW SUPER CROSS ADVANCED 11:31:11 Versed 1 mg I.V. was administered by Peter Salcedo RN; for sedation; 11:31:14 Fentanyl 100 mcg I.V. was administered by Peter Salcedo RN; for sedation; 11:35:18 UNABLE TO CROSS TO OM. SUPERCROSS REMOVED OVER WIRE 11:35:22 Wire advanced across lesion. 11:36:49 Place stent Inflation Number: 1 A KEYANNA OTW 3.0 x 08 stent ([id number]) was prepped and advanced across the Prox CX. The stent was deployed at 15 AKOSUA for 0:10 (min:sec). 11:37:21 Inflation number: 2 The stent balloon was then re-inflated across the Prox CX to 15 AKOSUA for 0:10 (min:sec). 11:38:20 Inflation number: 1 The stent balloon was then re-inflated across the Dist CX to 1 AKOSUA for 0:10 (min:sec). 11:38:34 Stent catheter was removed intact over wire. 11:38:35 Wire removed. 11:38:36 Guide catheter removed. 11:38:49 GUIDE 6FR AR 2.0 SH catheter ([id number]) opened to sterile field. 11:41:14 6 Fr AR2 SH guide catheter was inserted over the wire 11:41:37 Heparin Bolus 3000units I.V. was administered by Pteer Salcedo RN; for anticoagulation; verified with dr bates 11:41:51 CHOICE ES 182 wire advanced. 11:41:56 Versed 1 mg I.V. was administered by Peter Salcedo RN; for sedation; 11:42:37 Wire advanced across lesion. 11:42:49 LASER ELCA 0.9 Rx atherectomy catheter (795654) opened to sterile field. 11:43:28 Laser pass to pRCA with Fluence of 80 and Rate of 40. 11:45:40 Laser catheter removed. 11:45:56 Fentanyl 100 mcg I.V. was administered by Peter Salcedo RN; for sedation; 11:47:52 Inflate balloon Inflation number: 1 A EUPHORA 3.5 x 30 Balloon ([id number]) was prepped and advanced across the Mid RCA, then inflated to 13 AKOSUA for 0:10 (min:sec). 11:48:11 Inflation number: 2 The EUPHORA 3.5 x 30 Balloon ([id number]) was reinflated across the Mid RCA, to 19 AKOSUA for 0:10 (min:sec). 11:48:30 Wire removed. 11:48:30 Balloon removed over the wire. 11:48:30 Guide catheter removed. 11:48:49 Laser total pulses delivered: 1595 11:48:55 Laser total treatment time: 0 minutes 39 seconds 11:49:18 EXOSEAL 6Fr (EX600) opened to sterile field. 11:49:30 Sheath removed intact; hemostasis achieved with Exoseal to the Right Femoral artery. 11:49:32 Procedure ended.(Physican Out) 11:50:20 Fluoroscopy time 00.00 minutes. 11:50:25 Fluoroscopy dose: 1332 mGy 11:50:25 Flurop Dose total: 1332 11:50:30 Contrast amount:Isovue 300 185ml. 11:50:31 Sharps counted by scrub and verified by R.N. 11:50:35 Post-op/insertion site Right Femoral artery dressed using a 4 x 4 and Tegaderm. 11:50:39 Post right femoral artery:stable, soft, clean and dry 11:50:43 Post-procedure physical assessment completed. ASA score P 2 - A patient with mild systemic disease as per Will Bates MD. 11:50:59 Post procedure rhythm: unchanged. 11:51:02 Estimated blood loss: 10 ml 11:51:37 Post procedure instruction explained to patient.Patient verbalizes understanding. 11:51:38 Patient needs reinforcement of post procedure teaching. 11:52:21 Procedure type changed to Cath procedure, Diagnostic procedure, LHC, LHC w/Coronaries, Sedation Charges, Moderate Sedation up to 30 minutes, PCI procedure, Coronary Stent, Coronary Stent Initial, Coronary Atherectomy, Atherectomy w/PTCA Coronary Initial 11:54:33 Procedure and supply charges have been captured, reviewed, submitted and are correct. 11:54:35 Procedure Complication : No complications 11:54:37 Vital chart was stopped 11:54:38 See physician's report for complete and final results. 11:54:41 Report given to PCU. 11:54:43 Patient transfered to PCU with Bed. 11:54:46 Procedure ended. 11:54:46 Full Disclosure recording stopped 11:54:49 End room use (Document Last) 11:56:32 Plavix 75 mg P.O. was administered by Peter Salcedo RN; for antiplatelet therapy; 12:00:59 Morphine 4 mg I.V. was administered by Peter Salcedo RN; for chest pain; 09/03 12:10:04 Nitro Davenport 400 mcg S.L. was administered by Peter Salcedo RN; for chest pain; Intervention Summary Intervention Notes Time ActionType Lesion and Equipment Action# Pressure Duration Attributes Used 11:36:49 Place stent Prox CX KEYANNA OTW 3.0 1 15 00:10 x 08 stent ([id number]) 11:37:21 Reinflate Prox CX KEYANNA OTW 3.0 2 15 00:10 stent x 08 stent balloon ([id number]) 11:38:20 Reinflate Dist CX KEYANNA OTW 3.0 1 1 00:10 stent x 08 stent balloon ([id number]) 11:47:52 Inflate Mid RCA EUPHORA 3.5 x 1 13 00:10 balloon 30 Balloon ([id number]) 11:48:11 Reinflate Mid RCA EUPHORA 3.5 x 2 19 00:10 balloon 30 Balloon ([id number]) Device Usage Item Name Manufacture Quantity Catalog Number Hospital Part Current Tx nimal Lot# / Charge Number Stock Stock Serial# Code ACIST Syringe Acist 1 34177 765925 013662 812453 20 (66038) Medical Systems Inc Bag Decanter Microtek 1 412014 64283 113623 5 () Medical Inc. Medline Cath Cardinal 1 [id number] 658292 95173 126302 5 H2scan ([id number]) DIAGNOSTIC St Jacob 1 131306 317199 856474 249943 30 WIRE .035 260cm J wire (437660) ACIST Hand Acist 1 26226 380928 598624 034394 5 Control Medical (14035) Systems Inc ACIST Acist 1 25024 295511 472806 784178 5 Manifold Medical (92056) Systems Inc DIAGNOSTIC Cardinal 1 UG1176 906954 36765 896558 30 Multipack 5Fr Health catheter set (XO5715) Tegaderm 4 x 3M 1 1626W 795668 066602 404988 5 4 (1626W) SHEATH 6FR Terumo 1 OFD986 212486 776033 487937 40 Buxton (HDM949) MULTIPACK Cardinal 1 646261 5 Pigtail 5 Fr Health catheter MULTIPACK JL Cardinal 1 232024 5 4.0 5Fr Health catheter MULTIPACK Cardinal 1 640636 5 3DRC 5Fr Health catheter INFLATOR Merit 1 AV6727 502916 317878 004701 15 [facility] BasixCompak (UA9298) CHOICE PT [place] 1 [id number] 255248 876747 302019 5 Extra Support Scientific 182cm wire ([id number]) GUIDE 6FR Cardinal 1 [id number] 681508 738000 549370 10 XBLAD 3.5 Health catheter (64398476) CHOICE Floppy [place] 3 [id number] 976262 748099 227813 5 Straight Scientific 300cm guide wire (23633848) SuperCross Vascular 2 5306 757304 017157 354798 5 Microcatheter Solutions 120 Angle (5306) KEYANNA OTW 3.0 Medtronic 1 [id number] 578392 9456199 311833 5 [id number] x 08 stent ([id number]) GUIDE 6FR AR Medtronic 1 [id number] 731316 08842 981752 1 2.0 SH catheter ([id number]) LASER ELCA Neto 1 110-004 677274 356969 929524 5 0.9 Rx Healthcare atherectomy (002909) catheter (263348) EUPHORA 3.5 x Medtronic 1 [id number] 105343 806124 499076 5 [id number] 30 Balloon ([id number]) EXOSEAL 6Fr Cardinal 1 EX600 420782 276681 113267 10 (EX600) Health Signature Audit Roslyn Stage Time Signature Unsigned Intra-Procedure 11/28/2017 Madeline Flores 12:13:40 PM RT(R) Signatures Monitor : Madeline Flores Signature : RT Date : Time : [place] [id number] [place] [address]
[2017-11-27 19:24] LABS: BASOPHILS 0.6 % (0-2); HEMATOCRIT 43.1 % (42.0-54.0); HEMOGLOBIN 15.4 g/dL (13.5-17.5); IMMATURE GRANULOCYTES 1.4 % (0-5); LYMPHOCYTES 31.4 % (15-50); MCH 31.6 pg (26.0-34.0); MCHC 35.7 g/dL (31.0-37.0); MCV 88.3 fL (80.0-100.0); MEAN PLATELET VOLUME 9.2 fL (7.4-10.4); MONOCYTES 6.1 % (2-11); NEUTROPHILS 57.5 % (40-80); PLATELET COUNT 212 10x3/uL (130-400); RBC 4.88 10x6/uL (4.20-6.10); RDW 12.3 % (11.5-14.5); WBC 5.1 10x3/uL (4.8-10.8)
[2017-11-27 19:53] LABS: ALKALINE PHOSPHATASE 68 U/L (46-116); ALT (SGPT) 57 U/L (10-68); BILIRUBIN - TOTAL 0.46 mg/dL (0.2-1.3); CALC OSMOLALITY 266 mosm/kg (275-300); CALCIUM 8.3 mg/dL (8.5-10.1); CARBON DIOXIDE 27.3 mmol/L (21.0-32.0); CHLORIDE - SERUM 98 mmol/L (98-107); GLUCOSE 104 mg/dL (74-106); POTASSIUM - SERUM 3.8 mmol/L (3.5-5.1); PROTEIN - SERUM 7.6 g/dL (6.4-8.2); SODIUM 134 mmol/L (136-145); UREA NITROGEN 10 mg/dL (7-18); eGFR NON AFRICAN AMERICAN 84 mL/min (90-120)
[2017-11-27 19:59] VITALS: BP 128/82
[2017-11-27 20:05] LABS: CREATINE KINASE 146 UL (21-232); TROPONIN-I < 0.017 ng/mL (0.000-0.060)
[2017-11-27 21:01] VITALS: BP 124/78
[2017-11-27 21:50] VITALS: BP 123/77
[2017-11-28 00:24] VITALS: BP 112/61; BMI 31.8
[2017-11-28 00:43] VITALS: BP 112/61
[2017-11-28 01:55] LABS: CKMB 0.9 U/L (0.0-3.6); CREATINE KINASE 138 UL (21-232); TROPONIN-I < 0.017 ng/mL (0.000-0.060)
[2017-11-28 05:51] VITALS: BP 100/68
[2017-11-28 07:49] VITALS: BP 113/75
[2017-11-28 08:10] LABS: CKMB 0.9 U/L (0.0-3.6); CREATINE KINASE 128 UL (21-232); TROPONIN-I < 0.017 ng/mL (0.000-0.060)
[2017-11-28 08:35] VITALS: Ht 177.8 cm; Wt 100.7 kg
[2017-11-28 08:45] LABS: BASOPHILS 0.5 % (0-2); EOSINOPHILS 2.7 % (0-7); HEMATOCRIT 41.1 % (42.0-54.0); HEMOGLOBIN 14.4 g/dL (13.5-17.5); IMMATURE GRANULOCYTES 0.9 % (0-5); LYMPHOCYTES 38.8 % (15-50); MCH 31.4 pg (26.0-34.0); MCV 89.7 fL (80.0-100.0); MEAN PLATELET VOLUME 9.8 fL (7.4-10.4); MONOCYTES 10.6 % (2-11); NEUTROPHILS 46.5 % (40-80); PLATELET COUNT 220 10x3/uL (130-400); RBC 4.58 10x6/uL (4.20-6.10); RDW 12.5 % (11.5-14.5); WBC 4.4 10x3/uL (4.8-10.8)
[2017-11-28 08:48] LABS: ANION GAP 15.5 mmol/L (8-16); CALCIUM 8.3 mg/dL (8.5-10.1); CARBON DIOXIDE 26.7 mmol/L (21.0-32.0); POTASSIUM - SERUM 4.2 mmol/L (3.5-5.1)
[2017-11-28 08:56] LABS: CREATININE - SERUM 1.4 mg/dL (0.6-1.3)
[2017-11-28 11:05] VITALS: BP 115/74
== END 2017-11-28 16:11 | disposition home or self-care (01) ==
LOC: D.ER 18:49 → D.CLR 21:51 → OBSVTIME 21:51 → D.M2 21:51 → D.CLR 11-28 12:10
PROVIDERS: Emergency Medicine; Internal Medicine Interventional Cardiology
DX: I25.119 Atherosclerotic heart disease of native coronary artery with unspecified angina pectoris (principal); Z95.5 Presence of coronary angioplasty implant and graft; T82.855A Stenosis of coronary artery stent, initial encounter; Y83.8 Other surgical procedures as the cause of abnormal reaction of the patient, or of later complication, without mention of misadventure at the time of the procedure; I10 Essential (primary) hypertension; Z95.0 Presence of cardiac pacemaker; E78.5 Hyperlipidemia, unspecified

== ENCOUNTER 2017-11-29 23:21 | Emergency (ER) | payer BC ==
[~2017-11-29] VITALS: Ht 177.8 cm; Wt 100.5 kg
--- NOTE | ~2017-11-29 | DS ---
PATIENT:EMMANUEL MARTINO :69 MEDICAL RECORD: [id number] DISCHARGE SUMMARY ADMISSION DATE: 11/29/17 DISCHARGE DATE: 11/30/17 DISCHARGE DIAGNOSES: 1. Angina. 2. Coronary artery disease. 3. Percutaneous transluminal coronary angioplasty and stent to the right coronary artery and left circumflex this admission. 4. Hypertension. 5. Hyperlipidemia. HOSPITAL COURSE: Mr. Martino presents with anginal symptomatology, found to have 2-vessel coronary artery disease of the RCA and left circumflex, underwent successful PTCA stent of both territories, was discharged home with the addition of aspirin and Plavix to his medical regimen. We will follow up with [facility] in 1 month. TRANSINT:[id number] Voice Confirmation ID: [id number] DOCUMENT ID: [id number] MATILDA GASCA MD at 1729 CC: [id number] DICTATION DATE: 12/11/17 1601 CONTACT OFFICER: 12/11/17 2242 DEP ER 11/30/17 [id number] [place] [address]
[2017-11-29 23:37] VITALS: Ht 177.8 cm; Wt 100.5 kg
[2017-11-29 23:48] LABS: LYMPHOCYTES 24.7 % (15-50); MCH 31.1 pg (26.0-34.0); MCHC 35.3 g/dL (31.0-37.0); MCV 87.9 fL (80.0-100.0); MEAN PLATELET VOLUME 9.3 fL (7.4-10.4); NEUTROPHILS 71.4 % (40-80)
[2017-11-29 23:49] LABS: HEMATOCRIT 52.9 % (42.0-54.0); HEMOGLOBIN 18.7 g/dL (13.5-17.5); PLATELET COUNT 281 10x3/uL (130-400); RBC 6.02 10x6/uL (4.20-6.10); WBC 10.3 10x3/uL (4.8-10.8)
[2017-11-30 00:04] LABS: ALBUMIN 4.1 g/dL (3.4-5.0); ANION GAP 11.7 mmol/L (8-16); BILIRUBIN - TOTAL 0.54 mg/dL (0.2-1.3); CALCIUM 8.7 mg/dL (8.5-10.1); CARBON DIOXIDE 29.9 mmol/L (21.0-32.0); CREATININE - SERUM 1.4 mg/dL (0.6-1.3); POTASSIUM - SERUM 3.6 mmol/L (3.5-5.1); PROTEIN - SERUM 8.1 g/dL (6.4-8.2)
[2017-11-30 00:57] LABS: APPEARANCE CLEAR (CLEAR); BILIRUBIN NEGATIVE (NEGATIVE); COLOR YELLOW (YELLOW); GLUCOSE NEGATIVE (NEGATIVE); KETONE NEGATIVE (NEGATIVE); NITRITE NEGATIVE (NEGATIVE); PROTEIN 1+ mg/dL (NEGATIVE); UROBILINOGEN NORMAL (NORMAL)
[2017-11-30 00:58] LABS: BACTERIA FEW /hpf (NONE SEEN); EPITHELIAL CELLS 0-5 /hpf (0-5); HYALINE CAST 0-5 /lpf (NONE SEEN); RED CELLS - URINE 0-5 /hpf (0-5); WHITE CELLS - URINE 0-5 /hpf (0-5)
[2017-11-30] MEDS ORDERED: ZOFRAN ODT4 MG/UDTAB PO (02:09)
[2017-11-30] MEDS ORDERED: FLAGYL500 MG PO (02:10)
[2017-11-30 02:19] VITALS: BP 158/93
== END 2017-11-30 02:18 | disposition home or self-care (01) ==
LOC: D.ER 23:21
PROVIDERS: Family Medicine
DX: K52.9 Noninfective gastroenteritis and colitis, unspecified (principal); I10 Essential (primary) hypertension

== ENCOUNTER → 2018-07-03 08:06 | Outpatient (CLI) | payer BC ==
[2017-11-29 23:37] VITALS: BMI 31.7
[~2018-07-03 08:06] MED LIST changes: +FLAGYL500 MG PO; +ZOFRAN ODT4 MG/UDTAB PO
== END | disposition home or self-care (01) ==
LOC: D.US 07-02 08:00
PROVIDERS: ATTEND Internal Medicine Gastroenterology
DX: K31.89 Other diseases of stomach and duodenum (principal); K30 Functional dyspepsia; R11.2 Nausea with vomiting, unspecified; R14.0 Abdominal distension (gaseous)

== ENCOUNTER 2019-05-27 09:00 | Outpatient (CLI) | payer BC ==
[~2019-05-27] VITALS: Ht 177.8 cm; Wt 100.0 kg
--- NOTE | ~2019-05-27 | HEMODYNAMI ---
PATIENT:EMMANUEL PIZANO MEDICAL RECORD: [id number] : 69 LOCATION:[facility] ADMISSION DATE: 05/27/19 Generatedon:05/28/201912:58 Patient name: EMMANUEL PIZANO Patient #: [id number] SSN: : 1965 Date of study: 05/27/2019 Page: Of Hemodynamic Procedure Report Patient Data Patient Demographics Procedure consent was obtained First Name: EMMANUEL Gender: Male Last Name: JERICA : 1965 [facility] Initial: DESMOND Age: 53 year(s) Patient #: [id number] Race: Additional ID: [id number] Contact details Address: [address] [place] [address] lane State: [place] City: [place] Zip code: [address] Past Medical History History of disease Date Diagnosis Comments CAD Allergies: No known allergies Admission Admission Data Admission Date: 05/27/2019 Admission Time: 9:00 Room #: D.CL02 Procedure Procedure Types Cath Procedure Diagnostic Procedure LHC LH w/Coronaries FFR/IVUS FFR Initial Sedation Charges Moderate Sedation up to 30 minutes PCI Procedure Coronary Stent Coronary Stent Initial x2 Hemochron ACT Test Procedure Description Procedure Date Procedure Date: 05/27/2019 Procedure Start Time: 12:10 Procedure End Time: 12:32 Procedure Staff Name Function Shannon Felix RT Scrub Will Bates MD Performing Physician Gretchen Terrell RT Monitor Madeline Flores RT Color Shop Helper Diane Moreland RN Nurse Procedure Data Cath Procedure Fluoroscopy Diagnostic fluoroscopy Total fluoroscopy Time: 5.6 time: 5.6 min min Diagnostic fluoroscopy Total fluoroscopy dose: dose: 1037 mGy 1037 mGy Contrast Material Contrast Material Type Amount (ml) Isovue 300 123 Entry Location Entry Primary Successful Side Size Upsize Upsize Entry Closure Succes sful Closure Location (Fr) 1 (Fr) 2 (Fr) Remarks Device Remarks Femoral Right 6 Fr Exoseal artery Short Estimated blood loss: 10 ml Diagnostic catheters Device Type Used For End Catheter Placement MULTIPACK Pigtail 5 Fr Ventriculography catheter MULTIPACK JL 4.0 5Fr Procedure catheter MULTIPACK 3DRC 5Fr Procedure catheter Procedure Complications No complications Procedure Medications Medication Administration Route Dosage 0.9% NaCl I.V. 100 ml/hr Oxygen etCO2 Nasal cannula 2 l/min Lidocaine 2% added to field 20 Heparin Flush Bag added to field 2 bags (1000units/500ml NS) Versed I.V. 2 mg Fentanyl I.V. 50 mcg Heparin Bolus I.V. 4000 units Versed I.V. 2 mg Fentanyl I.V. 50 mcg Hemodynamics Rest Heart Rate: 60 (bpm) Pressure Samples Time Site Value (mmHg) Purpose Heart Use Rate(bpm) 12:12 AO 108/20(22) Snapshot 60 Snapshots Pre Cath Intra NCS Post Cath Vital Signs Time Heart Resp SPO2 etCO2 NIBP (mmHg) Rhythm Pain Sedation Rate (ipm) (%) (mmHg) Status Level (bpm) 12:03:03 61 16 100 34.3 119/88(101) Paced 0 (11) 10(A) , No pain 12:07:13 60 15 96 38 108/75(83) Paced 0 (11) 10(A) , No pain 12:11:19 60 11 96 39.4 113/74(87) Paced 0 (11) 10(A) , No pain 12:15:24 63 10 96 43.2 120/79(98) Paced 0 (11) 10(A) , No pain 12:19:34 62 10 96 43.3 112/75(92) Paced 0 (11) 10(A) , No pain 12:23:42 59 10 97 42.4 107/70(84) Paced 0 (11) 10(A) , No pain 12:27:48 63 13 99 40.2 120/75(92) Paced 0 (11) 10(A) , No pain 12:32:00 60 12 97 26.8 109/73(84) Paced 0 (11) 10(A) , No pain Medications Time Medication Route Dose Verified Delivered Reason Notes Effectiveness by by 12:02:12 0.9% NaCl I.V. 100 Will Diane used for ml/hr Jana Moreland associate professor physician 12:02:17 Oxygen etCO2 2 Will Diane used for Nasal l/min Jana Moreland procedure cannula RN 12:02:22 Lidocaine 2% added 20ml Will Solis for local to vial Jana Bates MD anesthetic field 12:02:26 Heparin Flush added 2 Will Solis used for Bag to bags Jana Bates MD procedure (1000units/500ml field NS) 12:10:12 Versed I.V. 2 mg Will Diane for sedation Jana Moreland RN 12:10:17 Fentanyl I.V. 50 Will Diane for sedation mcg Jana Moreland RN 12:15:55 Heparin Bolus I.V. 4000 Will Diane for verif ied units Jana Moreland anticoagulation with Dr. BOBBY Bates 12:20:25 Versed I.V. 2 mg Will Diane for sedation Jana Moreland RN 12:20:32 Fentanyl I.V. 50 Will Diane for sedation mcg Jana Moreland RN Procedure Log Time Note 11:44:46 Informed consent obtained and on chart 11:45:11 Procedure Status Urgent Heart Cath (IP). 11:45:12 Time tracking: Regular hours (M-F 7:00 - 5:00) 11:45:15 Plan of Care:Hemodynamics will remain stable., Cardiac rhythm will remain stable., Comfort level will be maintained., Respiratory function will remain adequate., Patient/ family verbilizes understanding of procedure., Procedure tolerated without complication., Recovers from procedure without complications.. 11:45:18 H&P Date Dictated: 05/27/2019 ER History on chart.. 11:46:08 Patient allergic to No known allergies 11:48:17 Madeline Flores RT(R) sent for patient. Start room use. 12:02:04 Vital chart was started 12:02:12 0.9% NaCl 100 ml/hr I.V. was administered by Diane Moreland RN; used for procedure; Verbal order read back and verified. 12:02:17 Oxygen 2 l/min etCO2 Nasal cannula was administered by Diane Moreland RN; used for procedure; Verbal order read back and verified. 12:02:22 Lidocaine 2% 20ml vial added to field was administered by Will Bates MD; for local anesthetic; Verbal order read back and verified. 12:02:26 Heparin Flush Bag (1000units/500ml NS) 2 bags added to field was administered by Will Bates MD; used for procedure; Verbal order read back and verified. 12:03:23 Patient received from ED to CCL 2 Alert and oriented. Tansferred to table in Supine position. 12:03:24 Correct patient and procedure confirmed by team. 12:03:24 Warm blankets applied, and frederick hugger turned on for patient comfort. 12:03:25 ECG and BP/O2 sat monitors applied to patient. 12:03:29 Rhythm: sinus rhythm 12:03:31 Pre-procedure instructions explained to patient. 12:03:31 Full Disclosure recording started 12:03:32 Pre-op teaching completed and patient verbalized understanding. 12:03:33 Family in waiting room. 12:03:44 Patient NPO since Midnight. 12:03:46 Is the patient allergic to Iodine/contrast media? No. 12:03:47 Is patient on blood thinner?Yes 12:03:49 ACC The patient was administered the following blood thiners within the last 24 hours: ACCPlavix 12:03:51 Patient diabetic? No. 12:03:53 Previous problem with sedation/anesthesia? No ? 12:03:55 Snore? Yes 12:03:56 Sleep apnea? No 12:03:57 Deviated septum? No 12:03:58 Sticks out tongue? Yes 12:03:58 Opens mouth fully? Yes 12:04:00 Airway obstruction? No ? 12:04:03 Dentures? No ? 12:04:05 Pre procedure: right dorsailis pedis pulse 1+ Palpable, but thready & weak; easily obliterated 12:04:08 Patient pain scale 0/10 ?. 12:04:18 IV patent on arrival in left hand with 0.9% NaCl at O. 12:04:28 Stress Test: no; N/A ? 12:04:32 Right groin area was prepped with chlora-prep and draped in sterile fashion 12:04:33 Sharps counted by scrub and verified by R.N. 12:04:33 Alarms reviewed by R. N. 12:05:29 Use device set Femoral Dx 12:05:30 ACIST Syringe (70791) opened to sterile field. 12:05:31 Medline Cath Pack ([id number]) opened to sterile field. 12:05:31 Bag Decanter (2002S) opened to sterile field. 12:05:33 ACIST Manifold (17626) opened to sterile field. 12:05:33 ACIST Hand Control (23799) opened to sterile field. 12:05:34 Tegaderm 4 x 4 (1626W) opened to sterile field. 12:05:34 DIAGNOSTIC Multipack 5Fr catheter set (QJ4885) opened to sterile field. 12:05:38 EMERALD Guide Wire (153-613) opened to sterile field. 12:05:47 SHEATH 6FR Willards (HGI806) opened to sterile field. 12:07:06 2) 60-89 Mildly reduced kidney function, and other findings (as for stage 1) point to kidney disease. 12:08:20 Maximum allowable contrast dose (3.7 X eGFR X 0.75)208 ml. 12:09:10 Physician arrived 12:09:11 Final Timeout: patient, procedure, and site verified with staff and physician. All members of the team are in agreement. 12:09:11 --------ALL STOP TIME OUT------ 12:09:15 Right groin site verified by team. 12:09:18 Fire Safety Assessment: A--An alcohol-based skin anteseptic being used preoperatively., C--Open oxygen or nitrous oxide is being used., D--An ESU, laser, or fiber-optic light is being used. 12:09:24 Sedation plan: IV Moderate Sedation Medication:Versed, Fentanyl 12:10:12 Versed 2 mg I.V. was administered by Diane Moreland RN; for sedation; Verbal order read back and verified. 12:10:17 Fentanyl 50 mcg I.V. was administered by Diane Moreland RN; for sedation; Verbal order read back and verified. 12:10:41 Procedure started. 12:10:48 Local anesthetic to right femoral artery with Lidocaine 2% by Will Bates MD.INITIAL ACCESS ONLY 12:11:04 A 6 Fr Short sheath was inserted into the Right Femoral artery 12:11:08 J wire advanced. 12:11:30 A MULTIPACK Pigtail 5 Fr catheter was advanced over the wire and used for Ventriculography. 12:11:33 LV angiography performed. 12:11:37 LV gram done using PRINGLE 12:12:45 EF : 60 % 12:12:47 Catheter removed. 12:12:54 A MULTIPACK JL 4.0 5Fr catheter was advanced over the wire and used for Procedure. 12:14:18 [place] Verrata Plus pressure wire (52285L) opened to sterile field. 12:14:20 INFLATOR Merit BasixCompak (LD8197) opened to sterile field. 12:14:56 A MULTIPACK 3DRC 5Fr catheter was advanced over the wire and used for Procedure. 12:15:55 Heparin Bolus 4000 units I.V. was administered by Diane Moreland RN; for anticoagulation; verified with Dr. Bates Verbal order read back and verified. 12:16:21 6 Fr xblad guide catheter was inserted over the wire 12:16:25 choice pt wire advanced. 12:16:26 Wire advanced across lesion. 12:16:47 GUIDE 6FR XBLAD 3.5 catheter ([id number]) opened to sterile field. 12:18:44 Place stent Inflation Number: 1 A KEYANNA RX 3.0 x 15 stent ([id number]) was prepped and advanced across the Mid LAD 85. The stent was deployed at 17 AKOSUA for 0:10 (min:sec) . 12:19:07 CHOICE PT Extra Support 182cm wire ([id number]) opened to sterile field. 12:19:17 Stent catheter was removed intact over wire. 12:19:21 Wire removed. 12:19:32 IFR wire advanced. 12:20:25 Versed 2 mg I.V. was administered by Diane Moreland RN; for sedation; Verbal order read back and verified. 12:20:32 Fentanyl 50 mcg I.V. was administered by Diane Moreland RN; for sedation; Verbal order read back and verified. 12:20:33 FFR/IFR wire advanced. 12:21:47 mCirc lesion measured at .90 with IFR 12:21:59 Wire removed. 12:22:50 Guide catheter removed. 12:24:02 GUIDE 6FR HS II catheter ([id number]) opened to sterile field. 12:24:15 6 Fr HS11 guide catheter was inserted over the wire 12:24:20 choice wire advanced. 12:24:21 Wire advanced across lesion. 12:25:02 Place stent Inflation Number: 1 A KEYANNA RX 3.0 x 15 stent ([id number]) was prepped and advanced across the Mid RCA 90. The stent was deployed at 23 AKOSUA for 0:10 (min:sec) . 12:: Inflation number: 2 The stent balloon was then re-inflated across the Mid RCA to 11 AKOSUA for 0:00 (min:sec) . 12::35 Inflation number: 3 The stent balloon was then re-inflated across the Mid RCA to 17 AKOSUA for 0:00 (min:sec) . 12::43 EXOSEAL 6Fr (EX600) opened to sterile field. 12:: Guide catheter removed. 12:: Wire removed. 12:: Sheath removed intact; hemostasis achieved with Exoseal to the Right Femoral artery. 12:: Procedure ended.(Physican Out) : Fluoroscopy time 05.60 minutes. 12:: Fluoroscopy dose: 1037 mGy 12:: Flurop Dose total: 1037 12::46 Dose Area Product 90130 mGy/cm. 12:: Contrast amount:Isovue 300 123ml. 12::54 Maximum allowable dose exceeded? No. 12::56 Insertion/operative site no bleeding no hematoma. 12:30:00 Post-op/insertion site Right Femoral artery dressed using a 4 x 4 and Tegaderm. 12:30:04 Post Procedure Pulses reassessed and unchanged 12::15 Post-procedure physical assessment completed. ASA score P 3 - A patient with severe systemic disease as per Will Bates MD. 12:30:19 Post procedure rhythm: unchanged. 12:30:21 Estimated blood loss: 10 ml 12:30:23 Post procedure instruction explained to patient.Patient verbalizes understanding. 12:31:10 Procedure type changed to Cath procedure, Diagnostic procedure, LHC, [facility] w/Coronaries, FFR/IVUS, FFR Initial, Sedation Charges, Moderate Sedation up to 30 minutes, PCI procedure, Coronary Stent, Coronary Stent Initial x2, Hemochron ACT Test 12::29 Procedure and supply charges have been captured, reviewed, submitted and are correct. 12::52 Procedure Complication : No complications 12::54 Vital chart was stopped 12:32:03 [facility] Findings: MVD- PCI performed (see procedure note) 12:32:07 See physician's report for complete and final results. 12:32:20 Report given to Pre/Post Procedure Room. 12:32:32 ACT drawn and resulted at 209 seconds. (normal therapeutic range 180-240 seconds). 12:32:45 Full Disclosure recording stopped 12:32:45 Procedure ended. 12:32:54 ACC-PCI Only Patient was given prescriptions, or instructed by Will Bates MD to start/continue the following medications upon discharge: Plavix 12:32:55 End room use (Document Last) 12:55:09 RCA angiography performed. LATE ENTRY 3.3.20 @1257CORRECTED CA 12:57:07 LCA angiography performed. LATE ENTRY 3.3.20 @1257 CORRECTED CA Intervention Summary Intervention Notes Time ActionType Lesion and Equipment Used Action# Pressure Duration Attributes 12:18:44 Place stent Mid LAD KEYANNA RX 3.0 x 1 17 00:11 15 stent ([id number]) 12:25:02 Place stent Mid RCA KEYANNA RX 3.0 x 1 23 00:10 15 stent ([id number]) 12:25:31 Reinflate Mid RCA KEYANNA RX 3.0 x 2 11 00:00 stent 15 stent balloon ([id number]) 12:25:35 Reinflate Mid RCA KEYANNA RX 3.0 x 3 17 00:00 stent 15 stent balloon ([id number]) Device Usage Item Name Manufacture Quantity Catalog Number Hospital Part Current Minimal Lot# / Charge Number Stock Stock Serial# Code ACIST Syringe Acist 1 67000 823174 850973 293134 20 (16780) Medical Systems Inc Bag Decanter Microtek 1 2001S 372847 94101 463759 5 (2001S) Medical Inc. Medline Cath Medline 1 [id number] 058263 77142 062411 5 Pack ([id number]) ACIST Hand Acist 1 71031 050325 544086 165264 5 Control Medical (21295) Systems Inc ACIST Manifold Acist 1 09580 447785 133738 408542 5 (59943) Medical Systems Inc DIAGNOSTIC Cardinal 1 XX1196 640719 25036 474131 30 Multipack 5Fr Health catheter set (MW0210) Tegaderm 4 x 4 3M 1 1626W 926220 622984 789730 5 (1626W) EMERALD Guide Cardinal 1 502-455 437220 548871 969244 5 Wire (502-455) Health SHEATH 6FR Terumo 1 UQZ167 515868 552983 135305 40 Willards (JKV041) MULTIPACK Cardinal 1 120033 5 Pigtail 5 Fr Health catheter MULTIPACK JL Cardinal 1 602872 5 4.0 5Fr Health catheter [place] 1 68805L 960490 499234791 297337 5 Verrata Plus pressure wire (95537Z) INFLATOR Merit Merit 1 HZ5309 554194 846349 012134 15 Shopliment Medical (PT7782) GUIDE 6FR Cardinal 1 [id number] 013632 893067 302495 10 XBLAD 3.5 Health catheter ([id number]) KEYANNA RX 3.0 x Medtronic 2 [id number] 134347 6925335 620293 5 [id number] 15 stent [id number] ([id number]) CHOICE PT Wadley 1 [id number] 050424 021543 630852 5 Extra Support Scientific 182cm wire ([id number]) GUIDE 6FR HS Medtronic 1 [id number] 440905 22381 386500 1 II catheter ([id number]) EXOSEAL 6Fr Cardinal 1 EX600 354614 990537 692544 10 (EX600) Health MULTIPACK 3DRC Cardinal 1 697260 5 5Fr catheter Health Signature Audit [place] Stage Time Signature Unsigned Intra-Procedure 05/27/2019 Gretchen Terrell 12:36:08 PM RT(R) Intra-Procedure 05/27/2019 Diane Moreland 12:36:39 PM RN Intra-Procedure 05/27/2019 Will Bates MD 12:37:11 PM 05/28/2019 12:54:28 PM Intra-Procedure 05/28/2019 Will Bates 12:58:20 PM Signatures Performing Physician : Signature : Will Bates MD Date : Time : Monitor : Gretchen Terrell Signature : RT Date : Time : Nurse : Diane Moreland RN Signature : Date : Time : [address] [place] [address]
--- NOTE | ~2019-05-27 | OP ---
PATIENT NAME: EMMANUEL PIZANO MEDICAL RECORD: [id number] :69 LOCATION:D.CAT ADMISSION DATE: SURGEON: MATILDA GASCA MD DATE OF OPERATION: 05/27/2019 PROCEDURES: 1. PTCA stent RCA. 2. PTCA stent LAD. 3. IFR left circumflex. 4. Left heart catheterization. 5. Selective coronary angiography. 6. Left ventriculogram. INDICATION: Angina and coronary artery disease. PROCEDURE IN DETAIL: After informed consent was obtained and after a detailed description of the risks, benefits as well as alternative therapies, the patient elected to proceed with angiogram and angioplasty. The right femoral area was prepped and draped in normal sterile fashion. Right femoral artery was cannulated via modified Seldinger technique with placement of 6-Mongolian sheath. All catheters exchanged through this sheath. FINDINGS: Left ventriculogram was performed in standard 30-degree PRINGLE view, reveals preserved cardiac wall motion, ejection fraction in the 50% range. SELECTIVE CORONARY ANGIOGRAPHY: 1. Left main is with no significant angiographic disease. 2. Left anterior descending has 85% stenosis in the mid vessel. 3. Left circumflex has a previously placed stents. He has questionable stenosis; however, IFR is normal. 4. The right coronary has previously placed stents. There is 85-90% in-stent restenosis in the mid vessel. PTCA STENT OF THE LAD: The stent used was a 3.0 x 15 mm [place]. Result was 0% residual stenosis. PTCA STENT OF THE RCA: The stent used was a 3.0 x 15 mm Cj, taken to 23 atmospheres. Result was 0% residual stenosis. OVERALL IMPRESSION: Successful PTCA stent of the LAD and RCA, both going from 85% plus initial stenosis to 0% residual. TRANSINT:[id number] Voice Confirmation ID: [id number] DOCUMENT ID: [id number] MATILDA GASCA MD CC: [id number] DICTATION DATE: 05/27/19 1231 INDEPENDENT LIVING INSTRUCTOR: 05/27/191909 [facility] CLI 05/27/19 [facility] [address] [id number]
[2019-05-27 09:42] LABS: APTT 25.9 SECONDS (22.8-39.4); INR 0.96 (0.85-1.17); PROTIME 12.8 SECONDS (11.6-15.0)
[2019-05-27 09:45] LABS: CALC OSMOLALITY 271 mosm/kg (275-300); CARBON DIOXIDE 26.6 mmol/L (21.0-32.0); CHLORIDE - SERUM 101 mmol/L (98-107); CREATININE - SERUM 1.1 mg/dL (0.6-1.3); GLUCOSE 115 mg/dL (74-106); POTASSIUM - SERUM 4.5 mmol/L (3.5-5.1); SODIUM 135 mmol/L (136-145); UREA NITROGEN 15 mg/dL (7-18); eGFR NON AFRICAN AMERICAN 75 mL/min (90-120)
[2019-05-27 09:47] LABS: BASOPHILS 0.9 % (0-2); EOSINOPHILS 2.8 % (0-7); HEMATOCRIT 43.5 % (42.0-54.0); HEMOGLOBIN 15.3 g/dL (13.5-17.5); IMMATURE GRANULOCYTES 0.7 % (0-5); LYMPHOCYTES 33.2 % (15-50); MCH 31.5 pg (26.0-34.0); MCHC 35.2 g/dL (31.0-37.0); MCV 89.7 fL (80.0-100.0); MEAN PLATELET VOLUME 9.3 fL (7.4-10.4); MONOCYTES 8.9 % (2-11); NEUTROPHILS 53.5 % (40-80); PLATELET COUNT 238 10x3/uL (130-400); RBC 4.85 10x6/uL (4.20-6.10); RDW 12.4 % (11.5-14.5); WBC 5.6 10x3/uL (4.8-10.8)
[2019-05-27 09:59] LABS: ALBUMIN 4.1 g/dL (3.4-5.0); ALKALINE PHOSPHATASE 68 U/L (30-120); ALT (SGPT) 46 U/L (10-68); BILIRUBIN - TOTAL 0.43 mg/dL (0.2-1.3); CKMB 0.7 U/L (0.0-3.6); CREATINE KINASE 184 UL (21-232); MAGNESIUM - SERUM 2.1 mg/dL (1.8-2.4); PROTEIN - SERUM 7.5 g/dL (6.4-8.2); TROPONIN-I < 0.017 ng/mL (0.000-0.060)
[2019-05-27 10:17] VITALS: Ht 177.8 cm; Wt 100.0 kg
[2019-05-27 11:50] VITALS: BP 112/72
--- NOTE | 2019-05-27 12:51 | NUR ---
PT ARRIVED BY STRETCHER. PLACED ON MONITOR. ASSESSMENT COMPLETED. VSS. PT'S FAMILY AT BEDSIDE. DR. GASCA ROUNDED AND SPOKE WITH PT AND PT'S FAMILY.
--- NOTE | 2019-05-27 13:05 | NUR ---
RIGHT GROIN DRESSING C/D/I. NO S/S OF HEMATOMA NOTED. CALL LIGHT WITHIN REACH. VSS. FAMILY AT BEDSIDE. NO NEEDS AT THIS TIME. RIGHT PEDAL PULSE PALPABLE AND LEG IS WARM TO TOUCH
--- NOTE | 2019-05-27 13:35 | NUR ---
RIGHT GROIN DRESSING C/D/I. NO S/S OF HEMATOMA NOTED. CALL LIGHT WITHIN REACH. FAMILY AT BEDSIDE. VSS AT THIS TIME. PT DENIES NAUSEA/PAIN. TOLERATING SIPS OF WATER AT THIS TIME.
--- NOTE | 2019-05-27 14:00 | NUR ---
PT RESTING COMFORTABLY. VSS. RIGHT GROIN DRESSING C/D/I. NO S/S OF HEMATOMA NOTED. CALL LIGHT WITHIN REACH. FAMILY AT BEDSIDE. PT GIVEN SANDWICH TRAY. STILL IN SUPINE POSITION, BUT FAMILY AT BEDSIDE TO ASSIST.
--- NOTE | 2019-05-27 15:00 | NUR ---
RIGHT GROIN DRESSING C/D/I. NO S/S OF HEMATOMA NOTED. RIGHT PEDAL PULSE PALPABLE. VSS. PT RESTING COMFORTABLY. NO NEEDS AT THIS TIME.
--- NOTE | 2019-05-27 15:30 | NUR ---
RIGHT GROIN DRESSING C/D/I. NO S/S OF HEMATOMA NOTED. CALL LIGHT WITHIN REACH. FAMILY AT BEDSIDE. NO NEEDS AT THIS TIME.
--- NOTE | 2019-05-27 15:40 | NUR ---
HEAD OF BED INC TO 30 DEGREES. TOLERATED WELL. NO BLEEDING/HEMATOMA NOTED. RIGHT GROIN DRESSING C/D/I. FAMILY AT BEDSIDE. WILL CONTINUE TO MONITOR.
--- NOTE | 2019-05-27 16:07 | NUR ---
RIGHT GROIN DRESSING C/D/I. NO S/S OF HEMATOMA NOTED. PIV D/C'D WITH CATH TIP INTACT. TOLERATED WELL. PT INSTRUCTED TO GET UP AND DRESSED AT THIS TIME. AT BEDSIDE TO ASSIST.
--- NOTE | 2019-05-27 16:10 | NUR ---
PT DRESSED. VOIDED IN URINAL WITHOUT DIFFICULTY. DISCUSSED DISCHARGE INSTRUCTIONS WITH PT AND PT'S FAMILY. THEY VOICED UNDERSTANDING.
--- NOTE | 2019-05-27 16:15 | NUR ---
RIGHT GROIN DRESSING C/D/I. NO S/S OF HEMATOMA NOTED. PT TAKEN OUT TO VEHICLE BY WHEELCHAIR. NO S/S OF DISTRESS NOTED. ALL BELONGINGS AND PAPERWORK IN HAND.
== END 2019-05-27 16:15 | disposition home or self-care (01) ==
LOC: D.ER 09:00 → D.CATH 09:00 → D.CLR 12:45 → EDSTATUS 12:45 → D.CATH 16:15
PROVIDERS: Family Medicine; ATTEND Internal Medicine Interventional Cardiology
DX: I25.119 Atherosclerotic heart disease of native coronary artery with unspecified angina pectoris (principal); R07.9 Chest pain, unspecified; R06.02 Shortness of breath; I10 Essential (primary) hypertension